=== PATIENT | female | born 1940 | race Caucasian/White ===

== ENCOUNTER 2018-11-18 17:38 | Inpatient (IN) | payer OTHER, MEDICAID ==
[~2018-11-18] VITALS: Ht 152.4 cm; Wt 82.3 kg
[2018-11-18 17:40] VITALS: BP 214/90
--- NOTE | 2018-11-18 18:03 | NUR ---
Maya PERSAUD AT BEDSIDE FOR NEBULIZER TREATMENT
[2018-11-18 18:08] LABS: ABSOLUTE BASOPHILS 0.1 thou/uL (0.0-0.2); ABSOLUTE EOSINOPHILS 0.4 thou/uL (0.0-0.7); ABSOLUTE LYMPHOCYTES 1.9 thou/uL (0.8-5.3); ABSOLUTE MONOCYTES 0.5 thou/uL (0.0-1.2); ABSOLUTE NEUTROPHILS 6.7 thou/uL (1.6-8.1); EOSINOPHILS 4.3 %; HEMATOCRIT 35.7 % (37.0-47.0); HEMOGLOBIN 11.7 gm/dL (12.0-15.0); LYMPHOCYTES 20.1 %; MCH 28.7 pg (26.0-34.0); MCHC 32.9 g/dL (28.0-37.0); MCV 87.3 fL (80.0-100.0); MONOCYTES 4.9 %; MPV 9.4 fl. (7.2-11.1); NUCLEATED RBCS 0 /100WBC; PLATELET COUNT* 264 thou/uL (150-400); POLYS 69.7 %; RBC 4.09 mil/uL (4.20-5.00); RDW-CV 15.7 % (10.5-14.5); WBC 9.6 thou/uL (4.0-11.0)
[2018-11-18 18:18] LABS: ANION GAP 11 mmol/L (7-16); BUN 13 mg/dL (7-18); CALCIUM 9.1 mg/dL (8.5-10.1); CHLORIDE 103 mmol/L (98-107); CO2 25 mmol/L (21-32); CREATININE 1.3 mg/dL (0.6-1.3); GLUCOSE 225 mg/dL (70-99); POTASSIUM 3.9 mmol/L (3.5-5.1); SODIUM 139 mmol/L (136-145)
[2018-11-18 18:27] LABS: ALBUMIN 3.6 g/dL (3.4-5.0); ALKALINE PHOSPHATASE 58 U/L (46-116); LIPASE 183 U/L (73-393); MAGNESIUM 1.9 mg/dL (1.8-2.4); NT-PRO BRAIN NAT PEPTIDE 385 pg/mL (<300); SGOT 11 U/L (15-37); SGPT 20 U/L (30-65); TOTAL BILIRUBIN 0.1 mg/dL (<0.1-1.0); TOTAL PROTEIN 7.4 g/dL (6.4-8.2); TROPONIN-I LEVEL <0.06 ng/mL (<0.06)
--- NOTE | 2018-11-18 19:56 | NUR ---
report given to viviana liriano rn. pt being admitted to room 225.
[2018-11-18 20:10] VITALS: BP 146/60
[2018-11-18] MEDS ORDERED: POTASSIUM20 PO (20:53)
[2018-11-18] MEDS ORDERED: METFORMIN HCL500 MG PO (20:53)
[2018-11-18] MEDS ORDERED: SINGULAIR 10 MG10 M1 PO (20:54)
[2018-11-18] MEDS ORDERED: LASIX 40 MG TAB40 M2 PO (20:54)
[2018-11-18] MEDS ORDERED: AMARYL4 MG PO (20:54)
[2018-11-18] MEDS ORDERED: FENOFIBRATE160 MG PO (20:54)
[2018-11-18] MEDS ORDERED: SIMVASTATIN40 MG PO (20:55)
[2018-11-18] MEDS ORDERED: ACCUNEB SO1.25 MG/1 INH (20:59)
[2018-11-19 00:46] VITALS: BP 122/71
[2018-11-19 04:20] VITALS: BP 148/66
--- NOTE | 2018-11-19 04:55 | NUR ---
ASSUMED CARE OF PT AT 2000 FROM THE ER. PT IS ALERT AND ORIENTED. VSS. PERRLA. PT REPORTS BACK PAIN. PT GETTING IBUPROFEN FOR PAIN. PT IS IN SINUS RYTHM ON THE TLEMETRY.PT IS RESTING COMFORTABLY IN BED. RESPIRATIONS ARE EVEN AND NONLABORED. WILL CONTINUE TO MONITOR PT.
[2018-11-19 08:00] VITALS: BP 170/71
--- NOTE | 2018-11-19 10:52 | NUR ---
PT A/O. TELE TRACKING SR AND ALL VSS ON 2L. DENIES CP. HAS COUGHING FREQUENT COUGHING FITS RESULTING IN SOA. C/O BACK AND RIB PAIN R/T COUGHING- MEDICATED PER EMAR. PT TEARFUL AND ANXIOUS SO FAR THIS SHIFT. EDUCATED ON SAFETY AND PLAN OF CARE. PLEASE SEE ASSESSMENT FOR ADDITIONAL INFORMATION. WILL CONT TO MONITOR
--- NOTE | 2018-11-19 14:27 | NUR ---
ATTEMPTED TO SEE PT X3 TODAY, WAS UNAVAILABLE EACH TIME. WILL TRY TOMORROW
[2018-11-19 14:39] VITALS: BP 158/64
[2018-11-19 17:00] VITALS: BP 156/67
--- NOTE | 2018-11-19 17:40 | 2DMMODE ---
[place] [address] 2 D/M-MODE ECHOCARDIOGRAM Name: RAJ JENNINGS Room: [address] IN [facility]#: [id number] Admission: 11/18/18 Attend Phys: Mani Farias, Discharge: Date of : 42 Date of Service: 11/19/18 1740 Report #: [id number] THIS REPORT FOR: //name// APPROVED REPORT Study performed: 11/19/2018 15:11:56 EXAM: Comprehensive 2D, Doppler, and color-flow Echocardiogram Patient Location: In-Patient Room #: [facility] BSA: 1.76 HR: 101 bpm BP: 170/71 mmHg Other Information Study Quality: Fair Indications Congestive Heart Failure 2D Dimensions IVSd: 13.28 (7-11mm) LVOT Diam: 20.89 (18-24mm) LVDd: 45.34 mm PWd: 11.81 (7-11mm) Ascending Ao: 29.77 (22-36mm) LVDs: 27.07 (25-40mm) Aortic Root: 23.63 mm Volumes Left Atrial Volume (Systole) LA ESV Index: 14.60 mL/m2 Aortic Valve AoV Peak Mandeep.: 2.09 m/s AO Peak Gr.: 17.47 mmHg LVOT Max P.74 mmHg AO Mean Gr.: 9.39 mmHg LVOT Mean P.16 mmHg LVOT Max V: 1.78 m/s AO V2 VTI: 32.33 cm LVOT Mean V: 1.26 m/s RUTHY (VTI): 3.65 cm2 LVOT V1 VTI: 34.43 cm Mitral Valve E/A Ratio: 0.49 MV Decel. Time: 169.90 ms MV E Max Mandeep.: 0.66 m/s MV PHT: 49.27 [place] [address] 2 D/M-MODE ECHOCARDIOGRAM Name: RAJ JENNINGS Room: [address] IN [facility].#: [id number] Admission: 11/18/18 Attend Phys: Mani Farias, Discharge: Date of : 42 Date of Service: 11/19/18 1740 Report #: [id number] MVA (PHT): 4.47 cm2 TDI E/Lateral E': 4.40 E/Medial E': 4.13 Medial E' Mandeep.: 0.16 m/s Lateral E' Mandeep.: 0.15 m/s Pulmonary Valve PV Peak Mandeep.: 1.52 m/s PV Peak Gr.: 9.26 mmHg Left Ventricle The left ventricle is normal size. There is normal LV segmental wall motion. There is normal left ventricular wall thickness. Left ventricular systolic function is normal. The left ventricular ejection fraction is within the normal range. LVEF is >70%. Grade I - abnormal relaxation pattern. Right Ventricle The right ventricle is normal size. The right ventricular systolic function is normal. Atria The left atrium size is normal. The right atrium size is normal. Aortic Valve The aortic valve is normal in structure. No aortic regurgitation is present. There is no aortic valvular stenosis. Mitral Valve The mitral valve is normal in structure. There is no mitral valve regurgitation noted. No evidence of mitral valve stenosis. Tricuspid Valve The tricuspid valve is normal in structure. There is no tricuspid valve regurgitation noted. Pulmonic Valve The pulmonary valve is normal in structure. There is no pulmonic valvular regurgitation. Great Vessels The aortic root is normal in size. IVC is normal in size and collapses >50% with [place] [address] 2 D/M-MODE ECHOCARDIOGRAM Name: RAJ JENNINGS Room: [address]#: [id number] Admission: 11/18/18 Attend Phys: Mani Farias, Discharge: Date of : 42 Date of Service: 11/19/18 1740 Report #: [id number] There is no pericardial effusion. <Conclusion> The left ventricle is normal size. There is normal left ventricular wall thickness. Left ventricular systolic function is normal. The left ventricular ejection fraction is within the normal range. LVEF is >70%. Grade I - abnormal relaxation pattern. The right ventricle is normal size. The right ventricular systolic function is normal. The left atrium size is normal. The aortic valve is normal in structure. The mitral valve is normal in structure. The tricuspid valve is normal in structure. IVC is normal in size and collapses >50% with inspiration. There is no pericardial effusion. There is normal LV segmental wall motion. <ELECTRONICALLY SIGNED> By: Larry Chan MD, FACC 11/19/181739 39 39 Larry Chan MD, FACC /INF
[2018-11-19 19:35] VITALS: BP 166/75
[2018-11-20] VITALS: BP 160/70
[2018-11-20 04:00] VITALS: BP 144/65
--- NOTE | 2018-11-20 04:16 | NUR ---
ASSUMED CARE OF PT AT 1900. PT IS ALERT AND ORIENTED. VSS. PERRLA. NO COMPLAINTS OF PAIN. PT IS IN SINUS RYTHM ON THE TELEMETRY. PT IS RESTING COMFORTABLY IN BED. RESPIRATIONS ARE EVEN AND NONLABORED. WILL CONTINUE TO MONITOR PT.
[2018-11-20 05:07] LABS: HEMATOCRIT 33.5 % (37.0-47.0); HEMOGLOBIN 10.7 gm/dL (12.0-15.0); MCH 28.2 pg (26.0-34.0); MCHC 31.8 g/dL (28.0-37.0); MCV 88.5 fL (80.0-100.0); NUCLEATED RBCS 0 /100WBC; PLATELET COUNT* 228 thou/uL (150-400); RBC 3.79 mil/uL (4.20-5.00); RDW-CV 16.1 % (10.5-14.5)
[2018-11-20 05:28] LABS: CALCIUM 9.4 mg/dL (8.5-10.1); CREATININE 1.5 mg/dL (0.6-1.3)
[2018-11-20 05:59] LABS: ABSOLUTE EOSINOPHILS 0.2 thou/uL (0.0-0.7); ABSOLUTE LYMPHOCYTES 1.1 thou/uL (0.8-5.3); ABSOLUTE MONOCYTES 0.2 thou/uL (0.0-1.2); ABSOLUTE NEUTROPHILS 16.6 thou/uL (1.6-8.1)
[2018-11-20 06:00] LABS: ANISOCYTOSIS 1+; PLATELET ESTIMATE ADEQUATE; POIKILOCYTOSIS 1+
[2018-11-20 08:00] VITALS: BP 155/74
--- NOTE | 2018-11-20 11:09 | NUR ---
ASSUMED PT CARE AT 0800, AOX4, UP WITH ASSIST, USE CANE. O2 SAT 90'S 2L NC. TRACING SR ON TELE. PT COMPLAINS OF SOA WITH ACTIVITY. LUNG SOUND DIMINISHED PT FOR ACCU CHECK. LAST BM 11/19/18. IV ACCESS INTACT, PT RECEIVED ANTIBIOTIC, VSS, AM ASSESSMENT CHARTED, MEDS GIVEN PER MAR, CALL LIGHT WITHIN REACH, WILL CONTINUE TO MONITOR.
[2018-11-20 12:00] VITALS: BP 180/66
--- NOTE | 2018-11-20 13:34 | NUR ---
MET WITH PT TO DISCUSS HOME SITUATION/DC PLANNING. PT LIVES WITH SON, HE WORKS. PT IS INDEPENDENT WITH ADLS, HAS TO TAKE BREAKS D/T SOB. USES WALKER OR CANE. DOESN'T DRIVE. HAS NEBULIZER. PT HAS HAD HH IN PAST AND BEEN TO SNF. REFUSES SNF AND WILL CONSIDER HH. PT BECAME TEARFUL DURING CONVERSATION, FRUSTRATED WITH ILLNESS. DIDN'T WANT TO TALK ANYMORE, STAYED WITH HER AND LISTENED. SUPPORT PROVIDED. HAS DPOA PAPERS TO CONSIDER ALSO. WILL FOLLOW
--- NOTE | 2018-11-20 14:50 | EKG ---
[place] [address] ELECTROCARDIOGRAM REPORT Name: MICHAELARAJ Room: [address] ADM IN M.R.#: [id number] Admission: 11/18/18 Attend Phys: Mani Farias MD Discharge: Date of : 42 Report #: [id number] THIS REPORT FOR: //name// [facility] ED Test Date: 2018-11-18 Test Time: 17:46:28 Pat Name: RAJ JENNINGS Department: Room: [facility] Gender: F Manager Payroll: : 1940 Requested By: Asif Peterson Order Number: [id number] MD: Larry Chan Measurements Intervals [place] Rate: 95 P: 58 DC: 147 QRS: 23 QRSD: 96 T: 74 QT: 340 QTc: 428 Interpretive Statements Sinus rhythm Low voltage, precordial leads Abnormal R-wave progression, late transition Borderline T abnormalities, anterior leads No previous ECG available for comparison Electronically Signed On 11-20-2018 14:50:00 CDT by Larry Chan [email or web address] <ELECTRONICALLY SIGNED> By: Larry Chan MD, [facility] 11/20/18 1450 1746 1746 Larry Chan MD, [facility] /EPI
--- NOTE | 2018-11-20 14:50 | EKG ---
[place] [address] ELECTROCARDIOGRAM REPORT Name: ALEISHA JENNINGSY Room: [address] ADM IN M.R.#: [id number] Admission: 11/18/18 Attend Phys: Mani Farias MD Discharge: Date of : 42 Report #: [id number] THIS REPORT FOR: //name// [facility] ED Test Date: 2018-11-18 Test Time: 17:47:31 Pat Name: RAJ JENNINGS Department: Room: [address] Gender: F Distribution Lead: : 1940 Requested By: Asif Peterson Order Number: [id number] Jaime MD: Larry Chan Measurements Intervals [place] Rate: 90 P: 75 [place]: 152 QRS: 28 QRSD: 99 T: 94 QT: 362 QTc: 443 Interpretive Statements Sinus rhythm Low voltage, precordial leads Abnormal R-wave progression, late transition Borderline T abnormalities, anterior leads No previous ECG available for comparison Electronically Signed On 11-20-2018 14:50:09 CDT by Larry Chan [email or web address] <ELECTRONICALLY SIGNED> By: Larry Chan MD, [facility] 11/20/18 1450 1747 174 Larry Chan MD, [facility] /EPI
[2018-11-20 20:15] VITALS: BP 174/79
[2018-11-20 23:14] LABS: CHOLESTEROL 182 mg/dL (<200); HDL CHOLESTEROL 34 mg/dL (>40); LDL CHOLESTEROL 101 mg/dL (<100); TC:HDL 5.4 Ratio (Not establshd); TRIGLYCERIDE 239 mg/dL (<150); VLDL 48 mg/dL (<40)
[2018-11-20 23:25] LABS: SERUM ASSESSMENT Slight Lipemia
[2018-11-21] VITALS: BP 145/73
[2018-11-21 04:00] VITALS: BP 166/71
--- NOTE | 2018-11-21 05:50 | NUR ---
PT. C/O PAIN THROUGHOUT SHIFT, ORDER RECEIVED FOR MORPHINE PRN. PARTIAL PAIN RELIEF OBTAINED. PT. GETS UP STAND BY ASSIST. WILL CONTINUE TO MONITOR.
[2018-11-21 08:00] VITALS: BP 178/89
[2018-11-21 11:46] VITALS: BP 159/89
--- NOTE | 2018-11-21 12:20 | NUR ---
ASSUMED PT CARE AT 0800, AOX4, UP SBA, O2 SAT 90'S 2L NC. TRACING SR ON TELE. PT COMPLAINS OF BACK PAIN. MEDS GIVEN. PT HAS HEATING PAD. PT FOR ACCU CHECK. PT ON ANTIBIOTIC, IV ACCESS INTACT, LAST BM 11/20/18. LUNG SOUND COARSE. VSS, AM ASSESSMENT CHARTED, MEDS GIVEN PER MAR, CALL LIGHT WITHIN REACH, WILL CONTINUE TO MONITOR.
[2018-11-21 15:58] VITALS: BP 138/63
[2018-11-21 20:00] VITALS: BP 137/61
[2018-11-22] VITALS: BP 146/71
[2018-11-22 04:00] VITALS: BP 143/65
[2018-11-22 04:49] LABS: HEMATOCRIT 31.7 % (37.0-47.0); HEMOGLOBIN 10.3 gm/dL (12.0-15.0); MCH 28.3 pg (26.0-34.0); MCHC 32.4 g/dL (28.0-37.0); MCV 87.3 fL (80.0-100.0); MPV 9.1 fl. (7.2-11.1); RBC 3.62 mil/uL (4.20-5.00); RDW-CV 15.9 % (10.5-14.5); WBC 12.3 thou/uL (4.0-11.0)
[2018-11-22 05:18] LABS: CALCIUM 8.9 mg/dL (8.5-10.1); CREATININE 1.4 mg/dL (0.6-1.3)
--- NOTE | 2018-11-22 06:32 | NUR ---
ASSESSMENT CHARTED. PATIENT PROGRESSING TOWARD GOALS. PATIENT HAS COMPLAINT OF PAIN IN BACK AND CHEST R/T COUGHING. PAIN MEDICATION AND HEATING PAD ADMINISTERED AND SHE REPORTS SIGNIFICANT IMPROVEMENT IN PAIN. VSS. PATIENT WAS ABLE TO SLEEP FOR ABOUT 5-6 HOURS TONIGHT. LAB WORK SHOWS IMPROVEMENT. WCTM
[2018-11-22 08:00] VITALS: BP 144/65
--- NOTE | 2018-11-22 10:42 | NUR ---
ASSUMED CARE OF PATIENT THIS AM AT 0730. PATIENT IS ALERT AND ORIENTED X 4. SHE C/O SEVERE BACK PAIN WITH COUGH. HEATING PAD ON TO HER BACK. TELE SHOWS NSR. SHE HAS BEEN UP TO THE BSC WITH STANDBY ASSIST. COARSE COUGH NOTED WITH A SMALL AMOUNT OF SPUTUM PRODUCTION. PATIENT INSRTCTED TO TCDB AND TO SPLINT WHEN COUGHING. MEDICATED FOR PAIN WITH LITTLE RELIEF. WILL CONTINUE TO MONITOR PATIENT COMFORT. NO FALLS OR INJURY.
--- NOTE | 2018-11-22 14:18 | NUR ---
Following for d/c planning needs. Reviewed chart. Pt may be ready for d/c in 1-2 days per physician. Will remain available to assist as needed.
[2018-11-22 15:44] VITALS: BP 123/66
[2018-11-22 18:58] VITALS: BP 138/56
[2018-11-22 20:00] VITALS: BP 131/62
[2018-11-23] VITALS: BP 143/75
[2018-11-23 04:29] VITALS: BP 155/77
[2018-11-23 08:00] VITALS: BP 172/79
[2018-11-23 11:00] VITALS: BP 157/71
[2018-11-23 16:17] VITALS: BP 141/55
--- NOTE | 2018-11-23 16:37 | NUR ---
ASSUMED PT CARE AT 0800, AOX4, UP SBA, O2 SAT 90'S RA. TRACING SR ON TELE. PT COMPLAINS OF BACK PAIN. MEDS GIVEN, PT HAS HEATING PAD. PT LUNG SOUND WHEEZE, LAST BM TODAY. PT FOR ACCU CHECK. VSS, AM ASSESSMENT CHARTED, MEDS GIVEN PER MAR, CALL LIGHT WITHIN REACH, HOURLY ROUNDING, WILL CONTINUE TO MONITOR.
[2018-11-23 20:00] VITALS: BP 146/67
[2018-11-24] VITALS: BP 165/79
[2018-11-24 04:00] VITALS: BP 160/65
[2018-11-24 08:00] VITALS: BP 202/86
[2018-11-24] MEDS ORDERED: MUCINEX600 MG PO (08:21)
[2018-11-24] MEDS ORDERED: BUSPIRONE HCL10 MG PO (08:21)
[2018-11-24] MEDS ORDERED: TESSALON PERLE100 MG PO (08:21)
[2018-11-24] MEDS ORDERED: LOPRESSOR50 PO (10:54)
[2018-11-24] MEDS ORDERED: IMDUR 30 MG TAB30 M1 PO (10:54)
[2018-11-24] MEDS ORDERED: COZAAR100 MG PO (10:54)
[2018-11-24] MEDS ORDERED: BAYER CHEWABLE81 MG PO (10:54)
[2018-11-24] MEDS ORDERED: ACETAMINOPHEN-1 EAC1 PO (10:54)
[2018-11-24] MEDS ORDERED: ESCITALOPRAM OX10 MG PO (10:54)
[2018-11-24] MEDS ORDERED: PREDNISONE 20 M20 MG PO (10:54)
[2018-11-24] MEDS ORDERED: SPIRIVA RESPIMAT4 G1 INH (10:59)
[2018-11-24 12:00] VITALS: BP 144/65
--- NOTE | 2018-11-24 12:00 | NUR ---
ASSUMED PT CARE AT 0800, AOX4, UP SBA, O2 SAT 90'S RA. TRACING SR ON TELE. PT DENIES PAIN.PT ACCU CHECK. PT FOR DISCHARGE. VSS, AM ASSESSMENT CHARTED. MEDS GIVEN PER MAR. CALL LIGHT WITHIN REACH, WILL CONTINUE TO MONITOR.
[2018-11-24 12:42] VITALS: BP 144/65
--- NOTE | 2018-11-24 14:22 | NUR ---
PT DISCHARGED PLAN DISCUSSED WITH THE PT. MEDICATION SCRIPT PACKET GIVEN. IV TELE REMOVED. REMINDED TO FOLLOW UP WITH PCP, PULMONOLOGY, CARDIOLOGY. LEFT THE UNIT AT 1410.
== END 2018-11-24 14:10 | disposition home or self-care (01) | DRG 189 ==
LOC: M.ERS 17:38 → M.TBA-ER 18:39 → M.2W 18:39
PROVIDERS: Emergency Medicine Emergency Medical Services; Family Medicine; Internal Medicine; Registered Nurse; ADMIT Internal Medicine
DX: J96.00 Acute respiratory failure, unspecified whether with hypoxia or hypercapnia (principal); J44.1 Chronic obstructive pulmonary disease with (acute) exacerbation; R65.10 Systemic inflammatory response syndrome (SIRS) of non-infectious origin without acute organ dysfunction; N17.9 Acute kidney failure, unspecified; I25.118 Atherosclerotic heart disease of native coronary artery with other forms of angina pectoris; E11.22 Type 2 diabetes mellitus with diabetic chronic kidney disease; E86.9 Volume depletion, unspecified; E78.5 Hyperlipidemia, unspecified; E11.65 Type 2 diabetes mellitus with hyperglycemia; F41.9 Anxiety disorder, unspecified; I12.9 Hypertensive chronic kidney disease with stage 1 through stage 4 chronic kidney disease, or unspecified chronic kidney disease; N18.9 Chronic kidney disease, unspecified; Z79.84 Long term (current) use of oral hypoglycemic drugs; I25.2 Old myocardial infarction; Z82.49 Family history of ischemic heart disease and other diseases of the circulatory system; Z84.1 Family history of disorders of kidney and ureter

== ENCOUNTER 2018-12-06 08:51 | Observation (INO) | payer OTHER, MEDICAID ==
[~2018-12-06] VITALS: Ht 152.4 cm; Wt 77.1 kg
[2018-12-06] VITALS (17 sets, daily range): BP systolic 121–148; BP diastolic 56–79
--- NOTE | ~2018-12-06 | H ---
[address] [address] HISTORY AND PHYSICAL Name: RAJ JENNINGS Room: [address] Jacy Connolly#: [id number] Admission: 12/06/18 Attend Phys: Larry Chan MD, Discharge: 12/07/18 Date of : 42 Report #: [id number] THIS REPORT FOR: //name// Please refer to the History and Physical performed in the physician's office. By: 0705Medical Records Staff TIARRA /RIZWAN
[~2018-12-06 08:51] MED LIST: ACCUNEB SO1.25 MG/1 INH; ACETAMINOPHEN-1 EAC1 PO; AMARYL4 MG PO; BAYER CHEWABLE81 MG PO; BUSPIRONE HCL10 MG PO; COZAAR100 MG PO; ESCITALOPRAM OX10 MG PO; FENOFIBRATE160 MG PO; IMDUR 30 MG TAB30 M1 PO; LASIX 40 MG TAB40 M2 PO; LOPRESSOR50 PO; METFORMIN HCL500 MG PO; MUCINEX600 MG PO; POTASSIUM20 PO; PREDNISONE 20 M20 MG PO; SIMVASTATIN40 MG PO; SINGULAIR 10 MG10 M1 PO; SPIRIVA RESPIMAT4 G1 INH; TESSALON PERLE100 MG PO
[2018-12-06] MEDS ORDERED: AMARYL4 MG PO (09:47)
[2018-12-06 09:53] LABS: HEMATOCRIT 33.2 % (37.0-47.0); HEMOGLOBIN 10.8 gm/dL (12.0-15.0); MCH 28.7 pg (26.0-34.0); MCHC 32.5 g/dL (28.0-37.0); MCV 88.3 fL (80.0-100.0); MPV 8.8 fl. (7.2-11.1); RBC 3.76 mil/uL (4.20-5.00); RDW-CV 15.3 % (10.5-14.5); WBC 8.5 thou/uL (4.0-11.0)
[2018-12-06 09:59] LABS: ANION GAP 10 mmol/L (7-16); BUN 15 mg/dL (7-18); CALCIUM 9.3 mg/dL (8.5-10.1); CHLORIDE 107 mmol/L (98-107); CO2 23 mmol/L (21-32); GLUCOSE 174 mg/dL (70-99); POTASSIUM 4.3 mmol/L (3.5-5.1); SERUM ASSESSMENT Clear; SODIUM 140 mmol/L (136-145)
[2018-12-06 10:03] LABS: CHOLESTEROL 173 mg/dL (<200); HDL CHOLESTEROL 30 mg/dL (>40); LDL CHOLESTEROL 98 mg/dL (<100); TC:HDL 5.8 Ratio (Not establshd); TRIGLYCERIDE 229 mg/dL (<150); VLDL 46 mg/dL (<40)
[2018-12-06 10:07] LABS: APTT 24.5 Seconds (25.0-31.3)
--- NOTE | 2018-12-06 13:26 | EKG ---
[place] [address] ELECTROCARDIOGRAM REPORT Name: RAJ JENNINGS Room: [facility]#: [id number] Admission: 12/06/18 Attend Phys: Larry Chan MD, Discharge: Date of : 42 Report #: [id number] THIS REPORT FOR: //name// [facility] Test Date: 2018-12-06 Test Time: 10:01:56 Pat Name: RAJ JENNINGS Department: Room: Gender: F Customer Care Assistant: : 1940 Requested By: Larry Chan Order Number: [id number] Jaime MD: Tay Dyer Measurements Intervals [place] Rate: 62 P: 69 [place]: 149 QRS: -3 QRSD: 89 T: 136 QT: 405 QTc: 412 Interpretive Statements Sinus rhythm Inferior infarct, old, possible Nonspecific T-wave flattening Compared to ECG 11/18/2018 17:47:31 Myocardial infarct finding now present Electronically Signed On 12-06-2018 13:26:25 CDT by Tay Dyer [email or web address] <ELECTRONICALLY SIGNED> By: Tay Dyer MD, FACC 12/06/18 1326 100 00 Tya Dyer MD, FAC /EPI
--- NOTE | 2018-12-06 13:27 | EKG ---
[place] [address] ELECTROCARDIOGRAM REPORT Name: RAJ JENNINGS Room: [facility]#: [id number] Admission: 12/06/18 Attend Phys: Larry Chan MD, Discharge: Date of : 42 Report #: [id number] THIS REPORT FOR: //name// [facility] Test Date: 2018-12-06 Test Time: 11:20:12 Pat Name: RAJ JENNINGS Department: Room: Gender: F Comfort Advisor: : 1940 Requested By: Larry Chan Order Number: [id number] Jaime MD: Tay Dyer Measurements Intervals [place] Rate: 62 P: 68 [place]: 141 QRS: 11 QRSD: 92 T: 101 QT: 406 QTc: 413 Interpretive Statements Sinus rhythm Nonspecific T abnrm, anterolateral leads Baseline wander in lead(s) V1 Compared to ECG 11/18/2018 17:47:31 T-wave abnormality no longer present Electronically Signed On 12-06-2018 13:26:51 CDT by Tay Dyer [email or web address] <ELECTRONICALLY SIGNED> By: Tay Dyer MD, FACC 12/06/18 1326 1120 1120 Tay Dyer MD, [facility] /EPI
--- NOTE | 2018-12-06 16:17 | EKG ---
[place] [address] ELECTROCARDIOGRAM REPORT Name: RAJ JENNINGSN Room: [address] M.R.#: [id number] Admission: 12/06/18 Attend Phys: Larry Chan MD, Discharge: Date of : 42 Report #: [id number] THIS REPORT FOR: //name// [facility] Test Date: 2018-12-06 Test Time: 14:38:48 Pat Name: RAJ JENNINGS Department: Room: [facility] Gender: F Ecologist Technician: : 1940 Requested By: Larry Chan Order Number: [id number] Reading MD: Larry Chan Measurements Intervals [place] Rate: 66 P: 65 [place]: 147 QRS: 21 QRSD: 95 T: 118 QT: 396 QTc: 415 Interpretive Statements Sinus rhythm Nonspecific T abnrm, anterolateral leads Compared to ECG 12/06/2018 11:20:12 No significant changes Electronically Signed On 12-06-2018 16:17:07 CDT by Larry Chan [email or web address] <ELECTRONICALLY SIGNED> By: Larry Chan MD, [facility] 12/06/18 1617 1438 143 Larry Chan MD, FACC /EPI
--- NOTE | 2018-12-06 19:10 | NUR ---
ASSUMED PT CARE AT AROUND 1400 FROM ELECTROCARDIOGRAPH OPERATOR. ASSESSMENT COMPLETED CHARTED. ABLE TO MAKE NEEDS KNOWN. C/O BACK PAIN AND GAVE PRN PAIN MEDICATION. PT ON BEDREST UNTIL 1920. RESTING IN BED AT THIS TIME. RIGHT GROIN SITE IS C/D/I. NO CHEST PAIN NOTED. VSS. WILL CONTINUE TO MONITOR.
[2018-12-07 00:23] VITALS: BP 138/73
[2018-12-07 04:18] VITALS: BP 165/68
[2018-12-07 04:28] LABS: HEMATOCRIT 31.2 % (37.0-47.0); HEMOGLOBIN 10.1 gm/dL (12.0-15.0); MCH 28.3 pg (26.0-34.0); MCHC 32.3 g/dL (28.0-37.0); MCV 87.6 fL (80.0-100.0); MPV 8.6 fl. (7.2-11.1); RBC 3.56 mil/uL (4.20-5.00); RDW-CV 15.7 % (10.5-14.5); WBC 7.1 thou/uL (4.0-11.0)
[2018-12-07 04:40] LABS: ALBUMIN 2.8 g/dL (3.4-5.0); ALKALINE PHOSPHATASE 52 U/L (46-116); ANION GAP 12 mmol/L (7-16); BUN 10 mg/dL (7-18); CALCIUM 8.7 mg/dL (8.5-10.1); CHLORIDE 107 mmol/L (98-107); CO2 22 mmol/L (21-32); GLUCOSE 162 mg/dL (70-99); POTASSIUM 3.9 mmol/L (3.5-5.1); SGOT 7 U/L (15-37); SGPT 17 U/L (30-65); SODIUM 141 mmol/L (136-145); TOTAL BILIRUBIN 0.3 mg/dL (<0.1-1.0); TOTAL PROTEIN 6.1 g/dL (6.4-8.2); TROPONIN-I LEVEL <0.06 ng/mL (<0.06)
[2018-12-07 08:00] VITALS: BP 163/73
[2018-12-07 10:28] VITALS: BP 127/70
[2018-12-07] MEDS ORDERED: NITROGLYCERIN0.4 MG SUBLING (11:43)
[2018-12-07] MEDS ORDERED: BRILINTA90 MG PO (11:43)
[2018-12-07 12:00] VITALS: BP 127/70; BP 180/79
--- NOTE | 2018-12-07 16:32 | NUR ---
ASSUMED PT CARE AT 1930. ASSESSMENT COMPLETED CHARTED. ABLE TO MAKE NEEDS KNOWN. C/O CHRONIC BACK PAIN AND GAVE PRN MEDS PER MAR. UP WITH SBA WITH CANE. SON IN ROOM CHERYL. DISCHARGE APPROVED, GAVE DISCHARGE PAPERWORK, SCRIPTS, MEDS INFO, IV TAKEN OUT AND HEART MONITOR REMOVED. NO COMMENTS, QUESTIONS, OR CONCERNS NOTED. PT LEFT IN WHEELCHAIR TO [employer] [facility]LE WITH NURSING AID HELP AT 1638.
--- NOTE | 2018-12-08 11:32 | D ---
[address] [address] DISCHARGE SUMMARY Name: RAJ JENNINGSN Room: [address] Jacy Connolly#: [id number] Admission: 12/06/18 Attend Phys: Larry Chan MD, Discharge: 12/07/18 Date of : 42 Report #: [id number] THIS REPORT FOR: //name// CC: Donny Chan DATE OF SERVICE: 12/07/2018 FINAL DISCHARGE DIAGNOSES: 1. Abnormal CT angiogram with FFR. 2. Coronary artery disease. 3. Status post percutaneous coronary intervention to the left anterior descending. 4. Hypertension. 5. Hyperlipidemia. 6. Type 2 diabetes. 7. Chronic obstructive pulmonary disease. 8. Renal insufficiency. PROCEDURES: 12/06/2018 - left heart catheterization, selective coronary arteriography, and percutaneous coronary intervention with deployment of drug-eluting stent in the proximal-mid LAD. The patient is a very pleasant 78-year-old female, who presented with chest discomfort suggesting angina following a course of clinical instability with a recent abnormal CT angiogram suggesting significant mid LAD disease. She has underlying hypertension, hyperlipidemia, diabetes and chronic obstructive pulmonary disease. There is also a history of renal insufficiency. The patient underwent cardiac catheterization on 12/06/2018, which revealed 90% tubular proximal-mid LAD stenosis with an ulcerated plaque in the middle of the lesion. There were no significant left main, circumflex or right coronary lesions. I performed percutaneous coronary intervention, deploying one 2.25 x 38 mm [place] drug-eluting stent in the proximal-mid LAD, post-dilating in 2.5 mm in the [id number] portion and a 2.75 proximally with 0% residual narrowing and YOANNA-3 flow to the distal vessel. The patient did well post-procedurally and there was no increase in troponin, which remained less than 0.06. She ambulated in the hallways without difficulty and there was good hemostasis at the right femoral site of catheterization. LABORATORY DATA: On 12/07, revealed sodium 141, potassium 3.9, BUN 10, creatinine 1.0, glucose 162. Hemoglobin 10.1, white blood cell count 7100 with 183,[address] [place] [address] DISCHARGE SUMMARY Name: RAJ JENNINGS Room: [address] Cathleen#: [id number] Admission: 12/06/18 Attend Phys: Larry Chan MD, Discharge: 12/07/18 Date of : 42 Report #: [id number] She was discharged home on the following medications: Albuterol inhalations every 4 hours, aspirin 81 mg daily, escitalopram oxalate 10 mg daily, fenofibrate 160 mg daily, furosemide 40 mg daily, glimepiride 4 mg b.i.d., isosorbide mononitrate 30 mg daily, metformin 1000 mg b.i.d. to be resumed on 12/08/2018, metoprolol tartrate 50 mg b.i.d., Singulair 10 mg at bedtime, potassium chloride 20 mEq daily, simvastatin 40 mg at bedtime, Brilinta 90 mg b.i.d. with 180 mg loading dose, Spiriva 4 grams inhalation b.i.d., and p.r.n. sublingual nitroglycerin. The patient is to return to see my nurse practitioner in 7-10 days and myself in 6 weeks. Thus, the patient is discharged to home in stable condition on the aforementioned medications with followup as iterated above. <ELECTRONICALLY SIGNED> By: Larry Chan MD, FACC 12/08/18 1132 0943 1000Jotamara Chan MD, FACC /nt
--- NOTE | 2018-12-08 14:21 | EKG ---
[place] [address] ELECTROCARDIOGRAM REPORT Name: ALEISHA JENNINGSAlla LAW Room: [address] M.R.#: [id number] Admission: 12/06/18 Attend Phys: Larry Chan MD, Discharge: 12/07/18 Date of : 42 Report #: [id number] THIS REPORT FOR: //name// [facility] Test Date: 2018-12-07 Test Time: 08:12:17 Pat Name: RAJ JENNINGS Department: Room: [facility] Gender: F Tube Mounter: : 1940 Requested By: Larry Chan Order Number: [id number] Reading : Beck Gaxiola Measurements Intervals [place] Rate: 77 P: 55 [place]: 143 QRS: 4 QRSD: 110 T: 118 QT: 372 QTc: 421 Interpretive Statements Sinus rhythm Nonspecific T abnormalities, lateral leads Compared to ECG 12/06/2018 14:38:48 T-wave abnormality now present Electronically Signed On 12-08-2018 14:20:46 CDT by Beck Gaxiola [email or web address] <ELECTRONICALLY SIGNED> By: Latoya Gaxiola MD, FAC 12/08/18 1420 1 1 Latoya Gaxiola MD, [facility] /EPI
--- NOTE | 2018-12-10 16:22 | CARD ---
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, Linnea De Anda RN Computer Terminal Operator, Mani Burdick Lawhorn, Becki RTR Monitor, Kierra Cedeno RTR Monitor Procedures Performed Art Access - R femoral artery Left Heart Cath w/or w/o Coronaries [facility] w/wo Plasty Single LAD Hemostasis w/ Angioseal Indication Positive stress test Risk Factors Hypercholesterolemia, Hypertension Admission/Lab Medications/Medications given during procedure Angiomax bolus and infusion Procedure Narrative The patient was brought electively to the Cardiac Catheterization Laboratory and was prepped and draped in a sterile manner. The right femoral was infiltrated with 2% Lidocaine subcutaneous anesthesia. A 6 Kinyarwanda sheath was inserted into the right femoral artery. Coronary angiography was performed using coronary diagnostic catheters. The right coronary system was accessed and visualized with a JR 4 6f catheter. The left coronary system was accessed and visualized with a JL 4 6f catheter. The left ventricle was accessed and visualized with a PIG 6f catheter. Left ventricular/Aortic Valve gradient assessed via catheter pullback. Left ventriculogram was performed in DAVIS projection. Pre-demployment femoral angiogram was performed . Closure device was deployed with a Fr Angioseal STS 6Fr. The patient tolerated the procedure well and there were no complications associated with the procedure. [place] [address] CARDIAC CATH REPORT Name: RIAVITORAJAlla LAW Room: [address] M.R.#: [id number] Admission: 12/06/18 Attend Phys: Larry Chan MD, Discharge: 12/07/18 Date of : 42 Report #: [id number] Intraoperative Conscious Sedation Sedation start time: 1221 Case end Time: 1317 Fentanyl 100 mcg Versed 3 mg Fluoro Time: 16.6 minutes Dose: DAP 870613 cGycm2 2313 mGy Contrast Type and Amount: Visipaque 210 ml Coronary Angiography The patient's coronary anatomy is right dominant. Diagnostic Cath Left Main 0% narrowing LAD 90% tubular proximalmid LAD stenosis with ulcerated plaque in the center of this lesion Circumflex 40% mid circumflex narrowing Right Coronary Dominant vessel with 30% proximal narrowing Left Ventriculography The left ventricle is normal in size with normal contractility. The left ventricular ejection fraction is estimated to be 65-70%. Left ventricular wall motion abnormalities are not present. There is no mitral insufficiency. Hemodynamics The aortic pressure is 177/72 mmHg with a mean of 108 mmHg. The left ventricular pressure is 189/8 mmHg with a mean of mmHg. The left ventricular end diastolic pressure is 24 mmHg. There was no gradient across the aortic valve upon pullback. PCI Technique Lesion Anticoagulation was achieved with Angiomax. Patient was preloaded with Angiomax. Percutaneous coronary intervention was performed on the proximamid l left anterior descending artery segment. The lesion stenosis prior to intervention was 90% with YOANNA 3 flow. A 6F XB LAD 3.5 Guide Catheter was used to engage the ostium. A IG: ProwaterFlex 180CM Interventional Guidewire was used to cross the lesion. BALLOON DILATION A Balloon catheter Mini Trek RX 1.5 X 12 was inserted and inflated up to 16.00atm for 13seconds. Additional Inflation: 16.00atm for 10seconds. Trek RX 2.25 x 12 inflated for 16 sec @ 14 jazzy, 11 sec @ 16 jazzy, and 9 sec @ 14 jazzy [place] [address] CARDIAC CATH REPORT Name: RIAVITORAJAlla LAW Room: [address] Jacy M.R.#: [id number] Admission: 12/06/18 Attend Phys: Larry Chan MD, Discharge: 12/07/18 Date of : 42 Report #: [id number] A drug-eluting stent Alejandro RX Stent 2.04P03nq was inserted and inflated up to 12.00atm for 8seconds. Additional Inflation: 16.00atm for 9seconds. POST STENT DEPLOYMENT BALLOON DILATION A Balloon catheter NC Trek RX 2.5 X 12 was inserted and inflated up to 12.00atm for 8seconds. Additional Inflation: 17.00atm for 7seconds. Additional Inflation: 16.00atm for 7seconds. NC Trek 2.75 x 12 inflated for 10 sec @ 15 jazzy, 6 sec @ 17 jazzy, 6 sec @ 10 jazzy, and 6 sec @ 12 jazzy Final angiography reveals 10 % stenosis with YOANNA 3 flow. COMMENTS There was an ulcerated plaque in the center of the high-grade proximalmid LAD lesion making wiring difficult and the intervention complex. Conclusion #1 significant coronary artery disease characterized by the following: A 90% proximalmid tubular LAD stenosis with an ulcerated plaque in the center of this lesion B 40% mid circumflex narrowing C dominant right coronary artery 30% proximal narrowing #2 normal left ventricular systolic function, estimate ejection fraction 65-70% #3 moderate systemic systolic hypertension with moderate elevation of left ventricular end-diastolic pressure at rest #4 successful percutaneous coronary intervention with deployment of a drug-eluting stent at site of 90% tubular proximalmid LAD stenosis with 10% residual narrowing and YOANNA-3 flow the distal vessel Recommendations Cardiac Risk Reduction Program Aggressive Medical Therapy Medications Administered Aspirin (any) [place] [address] CARDIAC CATH REPORT Name: RAJ JENNINGS Room: [address] Jacy Connolly#: [id number] Admission: 12/06/18 Attend Phys: Larry Chan MD, Discharge: 12/07/18 Date of : 42 Report #: [id number] Ticagrelor Diagnostic Cath Approved by: Larry Chan MD Date/Time: 12/10/2018 16:19:53 <ELECTRONICALLY SIGNED> By: Larry Chan MD, FACC 12/10/18 162 20 162Larry Chan MD, FACC /INF
== END 2018-12-07 16:40 | disposition home or self-care (01) ==
LOC: M.CL 08:51 → M.TBA-CV 13:39 → M.2W 13:39
PROVIDERS: ADMIT Internal Medicine
DX: I25.10 Atherosclerotic heart disease of native coronary artery without angina pectoris (principal); I10 Essential (primary) hypertension; E78.5 Hyperlipidemia, unspecified; E11.9 Type 2 diabetes mellitus without complications; J44.9 Chronic obstructive pulmonary disease, unspecified; N28.9 Disorder of kidney and ureter, unspecified

== ENCOUNTER → 2018-12-14 | Outpatient (CLI) | payer OTHER, MEDICAID ==
[~2018-12-14] MED LIST changes: +BRILINTA90 MG PO; +NITROGLYCERIN0.4 MG SUBLING
== END ==
LOC: M.RAD 11:03
DX: J98.11 Atelectasis (principal); J18.9 Pneumonia, unspecified organism; J92.9 Pleural plaque without asbestos; M85.88 Other specified disorders of bone density and structure, other site

== ENCOUNTER → 2019-01-31 | Outpatient (CLI) | payer OTHER, MEDICAID ==
[~2019-01-31] MED LIST changes: +HYDROCODON-ACE1 EAC7 PO; +LEVAQUIN 500 M500 M3 PO; +PLAVIX 75 MG TA75 MG PO; +ZOFRAN ODT4 MG PO
[2019-01-31 15:14] LABS: CALCIUM 8.9 mg/dL (8.5-10.1); CREATININE 1.2 mg/dL (0.6-1.3); POTASSIUM 4.4 mmol/L (3.5-5.1)
== END ==
LOC: M.LAB 14:32
PROVIDERS: Registered Nurse
DX: R06.09 Other forms of dyspnea (principal); N18.9 Chronic kidney disease, unspecified

== ENCOUNTER 2019-02-07 00:41 | Emergency (ER) | payer OTHER ==
[~2019-02-07] VITALS: Ht 152.4 cm; Wt 72.0 kg
[~2019-02-07 00:41] MED LIST changes: -HYDROCODON-ACE1 EAC7 PO; -LEVAQUIN 500 M500 M3 PO; -PLAVIX 75 MG TA75 MG PO; -ZOFRAN ODT4 MG PO
[2019-02-07 01:07] LABS: URINE BILIRUBIN NEGATIVE (Negative); URINE BLOOD NEGATIVE (Negative); URINE CLARITY CLEAR; URINE COLOR YELLOW; URINE GLUCOSE-RANDOM NEGATIVE (Negative); URINE KETONES NEGATIVE (Negative); URINE LEUKOCYTES-REFLEX 1+ (Negative); URINE NITRITE-REFLEX NEGATIVE (Negative); URINE PROTEIN NEGATIVE (Negative); URINE SPECIFIC GRAVITY 1.025 (1.005-1.030); URINE UROBILINOGEN 0.2 E.U./dl (0.2-1.0)
[2019-02-07] MEDS ORDERED: PLAVIX 75 MG TA75 MG PO (01:10)
[2019-02-07 01:13] LABS: SQUAMOUS 0-3 Few /LPF (0-3); TRANSITIONAL EPITHEL CELL 0-3 Few /LPF (None Seen); WBC CLUMPS Moderate (None Seen)
[2019-02-07 01:14] LABS: BACTERIA-REFLEX >30 Many /HPF (None Seen); CRYSTALS None Seen /LPF (None Seen); HYALINE CASTS 0-3 Few /LPF (None Seen); MUCUS 4-6 Moderate strn/LPF (None Seen); URINE RBC 3-10 Few /HPF (0-2); URINE WBC-REFLEX >25 Many /HPF (0-5)
[2019-02-07 01:21] LABS: ABSOLUTE BASOPHILS 0.1 thou/uL (0.0-0.2); ABSOLUTE EOSINOPHILS 0.3 thou/uL (0.0-0.7); ABSOLUTE LYMPHOCYTES 1.9 thou/uL (0.8-5.3); ABSOLUTE MONOCYTES 0.5 thou/uL (0.0-1.2); ABSOLUTE NEUTROPHILS 6.9 thou/uL (1.6-8.1); BASOPHILS 0.7 %; HEMATOCRIT 33.1 % (37.0-47.0); HEMOGLOBIN 10.5 gm/dL (12.0-15.0); LYMPHOCYTES 19.5 %; MCH 27.2 pg (26.0-34.0); MCHC 31.7 g/dL (28.0-37.0); MCV 85.8 fL (80.0-100.0); MONOCYTES 5.2 %; MPV 8.9 fl. (7.2-11.1); NUCLEATED RBCS 0 /100WBC; PLATELET COUNT* 382 thou/uL (150-400); POLYS 71.6 %; RBC 3.86 mil/uL (4.20-5.00); RDW-CV 16.1 % (10.5-14.5); WBC 9.6 thou/uL (4.0-11.0)
[2019-02-07 01:23] LABS: CALCIUM 9.5 mg/dL (8.5-10.1); CREATININE 1.8 mg/dL (0.6-1.3); POTASSIUM 4.8 mmol/L (3.5-5.1)
[2019-02-07 01:28] LABS: ALBUMIN 3.7 g/dL (3.4-5.0); TOTAL BILIRUBIN 0.2 mg/dL (<0.1-1.0); TOTAL PROTEIN 7.6 g/dL (6.4-8.2)
[2019-02-07] MEDS ORDERED: ZOFRAN ODT4 MG PO (03:24)
[2019-02-07] MEDS ORDERED: HYDROCODON-ACE1 EAC7 PO (03:24)
[2019-02-07] MEDS ORDERED: LEVAQUIN 500 M500 M3 PO (03:24)
[2019-02-07 03:45] VITALS: BP 134/56
== END 2019-02-07 03:45 | disposition home or self-care (01) ==
LOC: M.ERS 00:41
PROVIDERS: Personal Emergency Response Attendant
DX: N39.0 Urinary tract infection, site not specified (principal); E11.22 Type 2 diabetes mellitus with diabetic chronic kidney disease; I12.9 Hypertensive chronic kidney disease with stage 1 through stage 4 chronic kidney disease, or unspecified chronic kidney disease; N18.3 Chronic kidney disease, stage 3 (moderate); M19.90 Unspecified osteoarthritis, unspecified site; J44.9 Chronic obstructive pulmonary disease, unspecified; Z98.890 Other specified postprocedural states

== ENCOUNTER 2020-08-01 20:55 | Emergency (ER) | payer OTHER ==
[~2020-08-01] VITALS: Ht 152.4 cm; Wt 67.1 kg
[~2020-08-01 20:55] MED LIST changes: +HYDROCODON-ACE1 EAC7 PO; +LEVAQUIN 500 M500 M3 PO; +PLAVIX 75 MG TA75 MG PO; +ZOFRAN ODT4 MG PO
[2020-08-01] MEDS ORDERED: COZAAR 25 MG TA25 M2 PO (21:02)
[2020-08-01] MEDS ORDERED: ENDOCET 5-3251 EACH PO (22:51)
[2020-08-01 23:10] VITALS: BP 130/58
== END 2020-08-01 23:11 | disposition home or self-care (01) ==
LOC: M.ERS 20:55
DX: S42.214A Unspecified nondisplaced fracture of surgical neck of right humerus, initial encounter for closed fracture (principal); J44.9 Chronic obstructive pulmonary disease, unspecified; I13.10 Hypertensive heart and chronic kidney disease without heart failure, with stage 1 through stage 4 chronic kidney disease, or unspecified chronic kidney disease; E11.22 Type 2 diabetes mellitus with diabetic chronic kidney disease; N18.30 Chronic kidney disease, stage 3 unspecified; M19.90 Unspecified osteoarthritis, unspecified site; Z95.5 Presence of coronary angioplasty implant and graft; Z98.890 Other specified postprocedural states; W01.0XXA Fall on same level from slipping, tripping and stumbling without subsequent striking against object, initial encounter; Y93.89 Activity, other specified; Y92.89 Other specified places as the place of occurrence of the external cause; Y99.8 Other external cause status

== ENCOUNTER 2020-09-22 00:17 | Inpatient (IN) | payer OTHER ==
[~2020-09-22] VITALS: Ht 162.6 cm; Wt 79.8 kg
[2020-09-22] VITALS (7 sets, daily range): BP systolic 115–151; BP diastolic 47–64
[~2020-09-22 00:17] MED LIST changes: +COZAAR 25 MG TA25 M2 PO; +ENDOCET 5-3251 EACH PO
[2020-09-22 01:02] LABS: HEMATOCRIT 37.5 % (37.0-47.0); HEMOGLOBIN 12.1 gm/dL (12.0-15.0); MCH 29.2 pg (26.0-34.0); MCHC 32.1 g/dL (28.0-37.0); MCV 90.7 fL (80.0-100.0); MPV 9.9 fl. (7.2-11.1); NUCLEATED RBCS 0 /100WBC; PLATELET COUNT* 271 thou/uL (150-400); RBC 4.13 mil/uL (4.20-5.00); RDW-CV 14.9 % (10.5-14.5); WBC 9.4 thou/uL (4.0-11.0)
[2020-09-22 01:11] LABS: CALCIUM 8.1 mg/dL (8.5-10.1); CREATININE 2.7 mg/dL (0.6-1.3); POTASSIUM 4.4 mmol/L (3.5-5.1)
[2020-09-22 01:21] LABS: ALBUMIN 2.5 g/dL (3.4-5.0); TOTAL BILIRUBIN 0.3 mg/dL (<0.1-1.0); TOTAL PROTEIN 7.1 g/dL (6.4-8.2)
[2020-09-22 01:55] LABS: PCO2 34.3 mmHg (35.0-45.0)
[2020-09-22 01:56] LABS: BE -17.3 mmol/L (-2 to +3)
[2020-09-22 02:03] LABS: pH 7.121 (7.340-7.450)
[2020-09-22 02:13] LABS: ABSOLUTE MONOCYTES 0.4 thou/uL (0.0-1.2)
[2020-09-22 02:16] LABS: PLATELET ESTIMATE ADEQUATE
[2020-09-22 13:16] LABS: BE -16.1 mmol/L (-2 to +3); PCO2 34.8 mmHg (35.0-45.0); PO2 74.2 mmHg (75.0-100.0)
[2020-09-22 13:17] LABS: pH 7.147 (7.340-7.450)
--- NOTE | 2020-09-22 14:14 | NUR ---
Spoke to patient's son (Rosales) over the phone due to COVID isolation and patient being on vent. Introduced role of CM to son. Patient admitted for renal failure, COVID PNA, Respiratory Failure and Sepsis. Prior to admission patient was living with her son and his SO. Patient was independent with ADLS and uses a cane occasionally for mobility. Patient was not working or driving. No hx of DME, BHS, dialysis, infusion therapy, BHS, HH or SNF/Rehab. PCP is Dr. Kirkland ([facility] Son (Rosales) is DPOA and a copy is in the patients medical record. Patient is currently on a vent (FiO2 75% and peep 10). Continued levo and propofol. CM to continue to follow
--- NOTE | 2020-09-22 15:37 | EKG ---
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: DT : 1940 Requested By: Christa Alvarez Order Number: [id number] MD: Larry Chan Measurements Intervals Orwell Rate: 108 P: 36 ID: [id number] QRS: -10 QRSD: 104 T: 38 QT: 350 QTc: 469 Interpretive Statements Sinus tachycardia Left atrial enlargement Inferior infarct, old Anteroseptal infarct, age indeterminate possible Lateral leads are also involved Compared to ECG 12/07/2018 08:12:17 Atrial abnormality now present Myocardial infarct finding now present Sinus rate has increas T-wave abnormality no longer present Electronically Signed On 09-22-2020 15:37:06 CDT by Larry Chan [email or web address] <ELECTRONICALLY SIGNED> By: Larry Chan MD, [facility] 09/22/20 1537 0023 0023 Larry Chan MD, [facility] /EPI
[2020-09-22 16:40] LABS: URINE BILIRUBIN 2+ (Negative); URINE BLOOD 2+ (Negative); URINE CLARITY CLOUDY; URINE COLOR YELLOW; URINE GLUCOSE-RANDOM NEGATIVE (Negative); URINE KETONES TRACE (Negative); URINE LEUKOCYTES-REFLEX NEGATIVE (Negative); URINE NITRITE-REFLEX NEGATIVE (Negative); URINE PROTEIN 2+ (Negative); URINE SPECIFIC GRAVITY 1.025 (1.005-1.030); URINE UROBILINOGEN 0.2 E.U./dl (0.2-1.0)
[2020-09-22 16:42] LABS: ICTOTEST (BILI CONFIRMATORY) Negative (Negative)
[2020-09-22 16:45] LABS: HYALINE CASTS 4-10 Moderate /LPF (None Seen); MUCUS None Seen strn/LPF (None Seen); SQUAMOUS NONE SEEN /LPF (0-3); URINE WBC-REFLEX 0-5 Rare /HPF (0-5)
[2020-09-22 16:46] LABS: URINE RBC 0-2 Rare /HPF (0-2)
[2020-09-22 16:47] LABS: BACTERIA-REFLEX None Seen /HPF (None Seen); CRYSTALS None Seen /LPF (None Seen)
--- NOTE | 2020-09-22 18:50 | NUR ---
ASSUMED CARE AT 0700. STARTED TUBE FEEDS FOR PATIENT. BICARB AND LEVO DRIPS RUNNING. NO BM. PT AFEBRILE. ALL ASSESSMENTS COMPLETED CHARTED.
[2020-09-23] VITALS (41 sets, daily range): BP systolic 83–153; BP diastolic 22–66
--- NOTE | 2020-09-23 03:24 | NUR ---
ASSUMED PT CARE AT APPROX. 1915. PT IS SEDATED AND ON VENTILATOR. SEE EMAR FOR MEDICATION GTT. 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 WHEN PT WAS REPOSITIONED PT DESATED TO THE 70'S. MICRO-TURNS IMPLEMENTED TO PREVENT OXYGEN DESATURATION. RT MADE CHANGES TO VENT SETTINGS. SEE CHARTING FOR DETAILS. CURRENTLY PT IS RESTING, SEDATED, AND NO SIGNS OF PAIN OR TACHYPNEA. PTS SON CORNELL CALLED THIS EVENING AND REQUESTED AN UPDATE. HE WANTED A "TIME FRAME ON HOW LONG HIS MOM WILL BE ON THE VENTILATOR." RN TOLD HIM THAT EVERYONE IS DIFFERENT AND A SPECIFIC TIME FRAME CANNOT BE GIVEN, BUT SHE IS DOING WHAT WE WANT HER TO DO ON THE VENTILATOR AND IS APPROPRIATE. HE WAS THANKFUL. WILL CONT. TO MONITOR.
[2020-09-23 06:16] LABS: HEMATOCRIT 31.6 % (37.0-47.0); HEMOGLOBIN 10.6 gm/dL (12.0-15.0); MCH 29.2 pg (26.0-34.0); MCHC 33.5 g/dL (28.0-37.0); MCV 87.2 fL (80.0-100.0); MPV 9.6 fl. (7.2-11.1); RBC 3.62 mil/uL (4.20-5.00); RDW-CV 14.7 % (10.5-14.5); WBC 15.8 thou/uL (4.0-11.0)
[2020-09-23 06:28] LABS: CREATININE 2.2 mg/dL (0.6-1.3); MAGNESIUM 1.9 mg/dL (1.8-2.4); PHOSPHORUS* 3.6 mg/dL (2.5-4.9); POTASSIUM 3.2 mmol/L (3.5-5.1)
--- NOTE | 2020-09-23 14:55 | NUR ---
ICU Rounds: Patient remains on vent (FiO2 100% and Peep 10). Son Rosales is DPOA. Continued propofol, levo and TF.
[2020-09-23 15:03] LABS: BE -2.8 mmol/L (-2 to +3); PCO2 43.4 mmHg (35.0-45.0); pH 7.342 (7.340-7.450)
[2020-09-23 15:08] LABS: PO2 53.3 mmHg (75.0-100.0)
[2020-09-24] VITALS (96 sets, daily range): BP systolic 97–153; BP diastolic 38–57
--- NOTE | 2020-09-24 04:10 | NUR ---
ASSUMED CARE AT 1900H, ON VENT AT 100%. ON LEVO AND PROPOFOL DRIP, TITRATED. FENTANYL DRIP AT MAX DOSE. LOCALIZED TO PAIN. PT DID NOT TOLERATE TURNS. 02 SAT STILL DOWN, PULMO INFORMED WITH ORDERS MADE AND CARRIED OUT. PT MAINTAINING O2 SAT AT 88%-91% AND AT TIMES NOT IN SYNCH WITH THE VENT, PULMO AWARE AND VERSED STARTED. NO FEVER. CONTINUE MONITORING AND TOWARDS GOALS. SEDATION AT MAX DOSE. LEVO AT 15MICS.
[2020-09-24 05:17] LABS: HEMATOCRIT 28.4 % (37.0-47.0); HEMOGLOBIN 10.1 gm/dL (12.0-15.0); MCH 30.5 pg (26.0-34.0); MCHC 35.4 g/dL (28.0-37.0); MCV 86.2 fL (80.0-100.0); MPV 9.1 fl. (7.2-11.1); RBC 3.3 mil/uL (4.20-5.00); RDW-CV 14.2 % (10.5-14.5); WBC 16.1 thou/uL (4.0-11.0)
[2020-09-24 05:27] LABS: CALCIUM 6.1 mg/dL (8.5-10.1); CREATININE 2.1 mg/dL (0.6-1.3); POTASSIUM 3.2 mmol/L (3.5-5.1)
--- NOTE | 2020-09-24 15:17 | NUR ---
ICU Rounds: Patient remains on vent (FiO2 90% and Peep 13). Continued TF, fent, versed, levo and propofol.
[2020-09-25] VITALS (95 sets, daily range): BP systolic 69–163; BP diastolic 35–67
--- NOTE | 2020-09-25 10:20 | NUR ---
PATIENT NOT TOLERATING TURNS WELL. ATTEMPTED LEFT SIDE FOR 2 HOURS. HAD TO INCREASE FIO2 FROM 90-100%. TOLERATING SEMI-FOWLERS MUCH BETTER. WOUND CARE CONSULT DONE D/T RISK FOR BREAKDOWN.
[2020-09-25 11:13] LABS: PCO2 48.8 mmHg (35.0-45.0); PO2 69.7 mmHg (75.0-100.0); pH 7.301 (7.340-7.450)
--- NOTE | 2020-09-25 12:10 | NUR ---
barriers to d/c: pt remains on a vent. cm to cont to follow to asssit w/ dc as needed.
[2020-09-25 12:16] LABS: ABSOLUTE BASOPHILS 0.2 thou/uL (0.0-0.2); ABSOLUTE LYMPHOCYTES 0.7 thou/uL (0.8-5.3); ABSOLUTE MONOCYTES 0.5 thou/uL (0.0-1.2); ABSOLUTE NEUTROPHILS 20.7 thou/uL (1.6-8.1); HEMATOCRIT 28.5 % (37.0-47.0); HEMOGLOBIN 9.5 gm/dL (12.0-15.0); MCH 28.8 pg (26.0-34.0); MCHC 33.1 g/dL (28.0-37.0); MONOCYTES 2.4 %; MPV 9.2 fl. (7.2-11.1); NUCLEATED RBCS 0 /100WBC; PLATELET COUNT* 162 thou/uL (150-400); POLYS 93.6 %; RBC 3.28 mil/uL (4.20-5.00); WBC 22.1 thou/uL (4.0-11.0)
[2020-09-25 12:26] LABS: CALCIUM 6.3 mg/dL (8.5-10.1); CREATININE 2.4 mg/dL (0.6-1.3); POTASSIUM 4.6 mmol/L (3.5-5.1)
--- NOTE | 2020-09-25 18:30 | NUR ---
DID NOT PROGRESS TOWARDS GOALS. FIO2 100%. DOES NOT TOLERATE TURNS. POOR UOP. BP IMPROVING, ATTEMPTING TO WEAN LEVOPHED DOWN.
[2020-09-26] VITALS (80 sets, daily range): BP systolic 91–145; BP diastolic 47–89
[2020-09-26 05:26] LABS: HEMATOCRIT 26.4 % (37.0-47.0); HEMOGLOBIN 8.8 gm/dL (12.0-15.0); MCH 29.1 pg (26.0-34.0); MCHC 33.5 g/dL (28.0-37.0); MCV 86.9 fL (80.0-100.0); MPV 9.4 fl. (7.2-11.1); RBC 3.04 mil/uL (4.20-5.00); RDW-CV 15.3 % (10.5-14.5); WBC 16.5 thou/uL (4.0-11.0)
[2020-09-26 05:47] LABS: ALBUMIN 1.3 g/dL (3.4-5.0); CALCIUM 6.4 mg/dL (8.5-10.1); CREATININE 2.7 mg/dL (0.6-1.3); POTASSIUM 5.1 mmol/L (3.5-5.1); TOTAL BILIRUBIN 0.4 mg/dL (<0.1-1.0); TOTAL PROTEIN 5.5 g/dL (6.4-8.2)
--- NOTE | 2020-09-26 07:06 | NUR ---
PT WITH SMALL PROGRESS TOWARDS GOAL; PT REMAINED HEMODYNAMICALLY STABLE; ABLE TO TITRATE LEVO DOWN, ABLE TO TITRATE PROPOFAL DOWN; ATTEMPTED TO REPOSITION PT X 2 EACH TIME PT DESAT TO 79-80 WITH DIFFICULTY RECOVERING; PT RECEIVED A PARTIAL BED BATH CLEANSED FRONT OF PT ONLY DUE TO DESATING; SHAMPOO HAIR; MONITOR TRACING ST, ISOLATION MAINTAINED; WILL CONTINUE TO IMPLEMENT PLAN OF CARE.
[2020-09-26 15:38] LABS: BE -4.6 mmol/L (-2 to +3); PCO2 40.8 mmHg (35.0-45.0); PO2 63.2 mmHg (75.0-100.0); pH 7.329 (7.340-7.450)
--- NOTE | 2020-09-26 18:42 | NUR ---
ASSUMED CARE OF PATIENT AT 0700. ALL ASSESSMENTS COMPLETED CHARTED. PT STILL CURRENTLY ON 100% ON THE VENT AND SEDATED. PROPOFOL, FENTANYL, VERSED, LEVOPHED DRIPS. PT DESTATS EASILY WITH ANY TURNING OR MOVEMENT.
[2020-09-27] VITALS: BP 112/51
[2020-09-27 00:01] VITALS: BP 114/52
[2020-09-27 00:15] VITALS: BP 126/54
[2020-09-27 00:30] VITALS: BP 77/47
[2020-09-27 00:45] VITALS: BP 60/14
--- NOTE | 2020-09-27 04:27 | NUR ---
ASSUMED PATIENT CARE AT 1900. ASSESSMENTS COMPLETED CHARTED. CARDIAC MONITORING IN PLACE. HOURLY ROUNDING IN PLACE FOR PATIENT SAFETY. PATIENT OXYGEN SATURATION BEGAN TO DROP AROUND 0010. RT CALLED, THIS NURSE AT BEDSIDE WITH RT. PROVIDER NOTIFIED, NEW ORDERS RECEIVED FOR STAT CHEST XRAY. CHEST XRAY OBTAINED AND SHOWED PNEUMOTHORAX. ER PHYSICIAN EN ROUTE WHEN PATIENT CODED. CPR INITIATED, SEE CODE FLOWSHEET. NEXT OF KIN, PATIENT'S SON, ARRIVED AT HOSPITAL AND REQUESTED THAT RESUSCITATION EFFORTS BE STOPPED, COMMUNICATED TO ALL PROVIDERS PRESENT.
--- NOTE | 2020-09-27 09:01 | CON ---
[address] [address] CONSULTATION Name: RAJ JENNINGS Bridgette Room: [address] IN .R.#: [id number] Admission: 09/22/20 Attend Phys: Pamela Lim MD Discharge: 09/27/20 Date of : 42 Report #: [id number] THIS REPORT FOR: cc: Conchita Son,Dorothea Ziegler MD ~ DATE OF CONSULTATION: 09/26/2020 NEPHROLOGY CONSULTATION CONSULTING PHYSICIAN: Dr. Calvillo. REASON FOR ADMISSION: Shortness of breath. REASON FOR NEPHROLOGY CONSULTATION: Acute kidney injury. HISTORY OF PRESENT ILLNESS: This is a 80-year-old female with history of asthma and COPD, came in on the with shortness of breath, diagnosed with COVID pneumonia, was extremely hypoxic, was intubated, currently is intubated and sedated. Creatinine was 2.1 on admission. We have a creatinine now 1.8 from 2019, so she could be having chronic kidney disease stage IV. Nephrology was consulted because creatinine has gone up to 2.7 and she has been nonoliguric. Her blood pressure has been running low intermittently for the past couple of days as low as 70 systolic. She does take losartan and Lasix at home. She has been receiving Lasix intermittently over here. We checked a CPK level yesterday, it was 3683. She also has a history of diabetes mellitus type 2. She has evidence of bilateral pneumonia with worsening right-sided consolidation recently. The patient is intubated and sedated on my exam. She has also been hyperglycemic. ALLERGIES: No known allergies. REVIEW OF SYSTEMS: The patient is intubated and sedated. Ten-point review of systems could not be done. PAST MEDICAL HISTORY: Includes diabetes, COPD, chronic kidney disease stage IV, baseline creatinine around 1.8, hypertension, arthritis, arely in her back, , cataract surgery bilaterally, coronary artery stent. FAMILY HISTORY: Noncontributory. SOCIAL HISTORY: She does drink alcohol, does not smoke. No recreational drug use reported. HOME MEDICATIONS: Include baby aspirin, escitalopram, tiotropium, , [place] [address] CONSULTATION Name: RAJ JENNINGS Room: [address]#: [id number] Admission: 09/22/20 Attend Phys: Pamela Lim MD Discharge: 09/27/20 Date of : 42 Report #: [id number] clopidogrel, losartan, metformin, fenofibrate, montelukast, albuterol, nitroglycerin. PHYSICAL EXAMINATION: VITAL SIGNS: Blood pressure is 118/53, temperature is 37.3, pulse rate 106, respiratory rate is 26, pulse ox is 93%. She is on 100% FIO2. GENERAL: The patient is intubated and sedated. HEAD AND EYES Atraumatic, normocephalic. She has cushingoid facies and she has ET tube in place. NECK: There is JVD, difficult to assess because of fatty neck. CHEST: Bilaterally diminished breath sounds. No crackles anteriorly. CARDIOVASCULAR: S1, S2 normal. No murmurs. ABDOMEN: Soft, nondistended. LOWER EXTREMITIES: 1+ edema. NEUROLOGIC FUNCTION: She is sedated. PSYCHIATRIC: Not able to assess. LABORATORY DATA: WBC is 16.5, hemoglobin is 8.8, platelet count is 128. Sodium is 131; potassium is 5.1; creatinine is 2.7, up from 2.4; calcium that were uncorrected was 6.4. CPK was 3683. Other labs are reviewed. IMAGING: Renal ultrasound, chest and abdominal x-ray were reviewed. ASSESSMENT: 1. Acute kidney injury on chronic kidney disease stage IV, baseline creatinine could be around 1.8; she is nonoliguric and acute kidney injury in setting of ATN in the setting of COVID pneumonia. The patient has been hypotensive. She was taking ARB at home as well. Renal ultrasound shows a discrepancy between right and left kidney. Left kidney is much smaller in size, indicating renovascular disease causing her chronic kidney disease. UA showed 2+ blood, no rbc's and 2+ protein. There is also some rhabdomyolysis going on, CPK is 3683. 2. COVID pneumonia, acute on chronic respiratory failure, on mechanical ventilation. 3. Chronic obstructive pulmonary disease exacerbation. 4. Right humeral fracture. 5. Anxiety and depression. 6. Diabetes type 2. Primary team is treating. The patient is hyperglycemic. 7. Hypertension. Blood pressure has been intermittently low. 8. Chronic back pain. 9. Coronary artery disease, seems to be stable from that standpoint. PLAN: 1. In lieu of rhabdomyolysis, I will put her on gentle hydration, normal saline at 75 mL an hour. Chest x-ray does not necessarily look fluid overloaded, is [address] [address] CONSULTATION Name: RAJ JENNINGS Room: [address] IN .R.#: [id number] Admission: 09/22/20 Attend Phys: Pamela Lim MD Discharge: 09/27/20 Date of : 42 Report #: [id number] more consistent with COVID pneumonia. 2. Otherwise, calcium was replaced. 3. Avoid nephrotoxic agents. Try to keep MAP around 65 to 70. 4. The patient is currently on Levophed drip and she is in septic shock. 5. The patient is critically sick and I spent 35 minutes in critical care, this time was spent in chart review, basic orders and care coordination and we will follow with you. Thank you for this consultation. <ELECTRONICALLY SIGNED> By: Dorothea Madsen MD 09/27/2001 0735 [id number] Madsen MD /nt
== END 2020-09-27 01:00 | DRG 870 ==
LOC: M.ERS 00:17 → M.ICU 02:23 → M.TBA-ER 02:23 → M.ICU 04:37
PROVIDERS: Emergency Medicine; Internal Medicine; Pediatrics; ADMIT Internal Medicine; ATTEND Internal Medicine
PROC: 0BH17EZ Insertion of Endotracheal Airway into Trachea, Via Natural or Artificial Opening (ICD-10-PCS; principal; 2020-09-22)
PROC: 5A1955Z Respiratory Ventilation, Greater than 96 Consecutive Hours (ICD-10-PCS; principal; 2020-09-22)
PROC: 02HV33Z Insertion of Infusion Device into Superior Vena Cava, Percutaneous Approach (ICD-10-PCS; principal; 2020-09-22)
PROC: XW13325 Transfusion of Convalescent Plasma (Nonautologous) into Peripheral Vein, Percutaneous Approach, New Technology Group 5 (ICD-10-PCS; 2020-09-25)
PROC: XW033H5 Introduction of Tocilizumab into Peripheral Vein, Percutaneous Approach, New Technology Group 5 (ICD-10-PCS; 2020-09-25)
PROC: 5A12012 Performance of Cardiac Output, Single, Manual (ICD-10-PCS; 2020-09-27)
PROC: 0W9B30Z Drainage of Left Pleural Cavity with Drainage Device, Percutaneous Approach (ICD-10-PCS; 2020-09-27)
DX: A41.9 Sepsis, unspecified organism (principal); U07.1 COVID-19; E11.10 Type 2 diabetes mellitus with ketoacidosis without coma; J12.82 Pneumonia due to coronavirus disease 2019; J80 Acute respiratory distress syndrome; N17.9 Acute kidney failure, unspecified; R57.9 Shock, unspecified; J44.1 Chronic obstructive pulmonary disease with (acute) exacerbation; N39.0 Urinary tract infection, site not specified; J44.0 Chronic obstructive pulmonary disease with (acute) lower respiratory infection; N18.4 Chronic kidney disease, stage 4 (severe); E46 Unspecified protein-calorie malnutrition; I25.110 Atherosclerotic heart disease of native coronary artery with unstable angina pectoris; J93.9 Pneumothorax, unspecified; E11.22 Type 2 diabetes mellitus with diabetic chronic kidney disease; I12.9 Hypertensive chronic kidney disease with stage 1 through stage 4 chronic kidney disease, or unspecified chronic kidney disease; M19.90 Unspecified osteoarthritis, unspecified site; F41.9 Anxiety disorder, unspecified; F32.9 Major depressive disorder, single episode, unspecified; G89.29 Other chronic pain; M54.9 Dorsalgia, unspecified; E11.65 Type 2 diabetes mellitus with hyperglycemia; Z68.30 Body mass index [BMI] 30.0-30.9, adult; Z98.42 Cataract extraction status, left eye; Z98.41 Cataract extraction status, right eye; Z98.891 History of uterine scar from previous surgery; Z95.5 Presence of coronary angioplasty implant and graft; Z79.82 Long term (current) use of aspirin; Z79.899 Other long term (current) drug therapy; Z79.01 Long term (current) use of anticoagulants; Z79.84 Long term (current) use of oral hypoglycemic drugs